=== PATIENT | female | born 1975 | race Caucasian/White ===

== ENCOUNTER 2021-07-13 10:46 | Emergency (ER) | payer BC ==
[~2021-07-13] VITALS: Ht 177.8 cm; Wt 86.5 kg
[~2021-07-13 10:46] MED LIST: FLUO20CA22 PO; GLYB5TAB3 PO; METF850T8 PO; PNV1TABL25 PO
[2021-07-13] MEDS ORDERED: FAMOTIDINE 20 MG/2 ML VIAL IVP ONE (11:15)
[2021-07-13] MEDS ORDERED: fentaNYL PF VIAL 100 MCG/2 ML VIAL IVP ONE (11:15)
[2021-07-13] MEDS ORDERED: ONDANSETRON PF 4 MG/2 ML VIAL. IVP ONE (11:15)
[2021-07-13] MEDS ORDERED: IV NORMAL SALINE 1000ML BAG 1,000 ML IV ONE (11:15)
[2021-07-13 11:35] LABS: BILIRUBIN,URINE NEGATIVE (NEG); CLARITY,URINE CLOUDY; COLOR,URINE YELLOW; NITRITE,URINE NEGATIVE (NEG); PROTEIN,URINE NEGATIVE (NEG-TRACE); UROBILINOGEN,URINE 0.2 mg/dL (0.2 mg/dL)
[2021-07-13 11:36] LABS: BASO % 0 % (0-3); EOS % 0 % (0-3); HEMATOCRIT 36.4 % (36.0-47.0); HEMOGLOBIN 12.3 g/dL (12.0-15.5); LYMPH # 1.1 x10^3/uL (1.0-4.8); LYMPH % 9 % (24-48); MEAN CORPUSCULAR HEMOGLOBIN 31 pg (25-35); MEAN CORPUSCULAR HGB CONC 34 g/dL (31-37); MEAN CORPUSCULAR VOLUME 91 fL (79-100); MONO # 0.4 x10^3/uL (0.0-1.1); MONO % 3 % (0-9); NEUT % 88 % (31-73); PLATELET COUNT 210 x10^3/uL (140-400); RED BLOOD COUNT 3.99 x10^6/uL (3.50-5.40); WHITE BLOOD COUNT 12.6 x10^3/uL (4.0-11.0)
[2021-07-13 11:43] LABS: AMORPHOUS SEDIMENT,UR PRESENT /HPF; BACTERIA,URINE 0 /HPF (0-FEW); RBC,URINE 0 /HPF (0-2); WBC,URINE 0 /HPF (0-4)
[2021-07-13 11:46] LABS: BARBITURATES NEG (NEG); BENZODIAZEPINES NEG (NEG); CANNABINOIDS NEG (NEG); COCAINE NEG (NEG); METHADONE NEG (NEG); OPIATES NEG (NEG); PHENCYCLIDINE NEG (NEG)
[2021-07-13 11:47] LABS: CALCIUM 8.6 mg/dL (8.5-10.1); CREATININE 0.8 mg/dL (0.6-1.0); GFR 78.3; POTASSIUM 4.4 mmol/L (3.5-5.1)
[2021-07-13 11:50] LABS: AMPHETAMINE/METHAMPHETAMINE NEG (NEG)
[2021-07-13 11:52] LABS: ALBUMIN 3.6 g/dL (3.4-5.0); TOTAL BILIRUBIN 0.2 mg/dL (0.2-1.0); TOTAL PROTEIN 7.1 g/dL (6.4-8.2)
[2021-07-13] MEDS ORDERED: METOCLOPRAMIDE HCL 10 MG/2 ML VIAL. IVP ONE (12:00)
[2021-07-13] MEDS ORDERED: IOHEXOL 300 MG/ML 100ML VIAL. IV ONE (12:45)
--- NOTE | 2021-07-13 13:32 | RAD ---
INDICATION: Reason: n/v/ / Spl. Instructions: omni 300 75ml / History: COMPARISON: None. TECHNIQUE: Axial CT images were obtained through the abdomen and pelvis with intravenous contrast. One or more of the following individualized dose reduction techniques were utilized for this examinat ion: 1. Automated exposure control; 2. Adjustment of the mA and/or kV according to patient size; 3 . Use of iterative reconstruction technique. FINDINGS: Vascular: No abdominal aortic aneurysm. Hepatobiliary: No intrahepatic biliary duct dilation. Pancreas: No peripancreatic edema. Spleen: Spleen unremarkable. Renal/Bladder: Urinary bladder is largely decompressed. Moderate hydronephrosis and hydroureter with perinephric edema and 3 to 4 mm right distal ureter stone. Gastrointestinal: Post appendectomy changes. No dilated loops of bowel to suggest obstruction. Small fat-containing umbilical hernia. There are some degenerative changes the spine with osteophyte formation. IMPRESSION: * Right-sided hydronephrosis and hydroureter with perinephric edema and right distal ureter stone. Electronically signed by: Jared Serrato MD (07/13/2021 1:29 PM) [id number]
[2021-07-13] MEDS ORDERED: MORPHINE SULFATE 4 MG/ML INJ. IVP ONE (13:45)
[2021-07-13] MEDS ORDERED: TAMSULOSIN 0.4 MG CAP.ER.24H. PO ONE (14:00)
[2021-07-13] MEDS ORDERED: NAPR500T8 PO (15:33)
[2021-07-13] MEDS ORDERED: ONDA4TAB12 PO (15:33)
[2021-07-13] MEDS ORDERED: TAMS0.4C97 PO (15:33)
[2021-07-13] MEDS ORDERED: HYDR-2761 PO (15:33)
--- NOTE | 2021-07-13 15:34 | PHYS DOC ---
Past Medical History Past Medical History: Diabetes-Type II (HILLARY CONTRERAS [address] TESTER) Past Surgical History: Appendectomy, , Tonsillectomy Additional Past Surgical Histo: bilateral inner ear surgery (HILLARY CONTRERAS [address] TESTER) Smoking Status: Never Smoker Alcohol Use: Occasionally Drug Use: None (HILLARY CONTRERAS [address] TESTER) General Adult EDM: Chief Complaint: FLANK PAIN HPI: HPI: Patient is a 45 year old female with a history of diabetes type 2 who presents to the ED today complaining of moderate right low back pain nonradiating in nature with nausea and vomiting that began this morning. Patient denies any fever. Denies any urgency frequency or dysuria, denies any hematuria. Denies anything specifically exacerbating or relieving the pain. Describes the pain as sharp and constant (HILLARY CONTRERAS [address] TESTER) Review of Systems: Review of Systems: Constitutional: Denies fever or chills. [] Eyes: Denies change in visual acuity. [] HENT: Denies nasal congestion or sore throat. [] Respiratory: Denies cough or shortness of breath. [] Cardiovascular: Denies chest pain or edema. [] GI: Reports nausea and vomiting. Denies abdominal pain, bloody stools or diarrhea. [] : Denies dysuria. [] Musculoskeletal: Reports right low back pain Integument: Denies rash. [] Neurologic: Denies headache, focal weakness or sensory changes. [] Psychiatric: Denies depression or anxiety. [] (HILLARY CONTRERAS [address] TESTER) Heart Score: C/O Chest Pain: N/A Risk Factors: Risk Factors: DM, Current or recent (<one month) smoker, HTN, HLP, family history of CAD, obesity. Risk Scores: Score 0 - 3: 2.5% MACE over next 6 weeks - Discharge Home Score 4 - 6: 20.3% MACE over next 6 weeks - Admit for Clinical Observation Score 7 - 10: 72.7% MACE over next 6 weeks - Early Invasive Strategies (ANNETTEHILLARY [address] TESTER) Current Medications: Current Medications Medications (Trade) Dose Ordered Sig/Beatrice Start Time Stop Time Status Last Admin Dose Admin Famotidine (Pepcid Vial) 20 mg 1X ONCE 07/13/21 11:15 07/13/21 11:16 DC 07/13/21 11:30 20 MG Fentanyl Citrate (Fentanyl 2ml Vial) 50 mcg 1X ONCE 07/13/21 11:15 07/13/21 11:16 DC 07/13/21 11:32 50 MCG Iohexol (Omnipaque 300 Mg/ml) 75 ml 1X ONCE 07/13/21 12:45 07/13/21 12:46 DC 07/13/21 13:14 75 ML Metoclopramide HCl (Reglan Vial) 10 mg 1X ONCE 07/13/21 12:00 07/13/21 12:01 DC 07/13/21 12:50 10 MG Morphine Sulfate (Morphine Sulfate) 4 mg 1X ONCE 07/13/21 13:45 07/13/21 13:46 DC 07/13/21 13:20 4 MG Ondansetron HCl (Zofran) 4 mg 1X ONCE 07/13/21 11:15 07/13/21 11:16 DC 07/13/21 11:29 4 MG Sodium Chloride 1,000 ml @ 1,000 mls/hr 1X ONCE 07/13/21 11:15 07/13/21 12:14 DC 07/13/21 11:28 1,000 MLS/HR Tamsulosin HCl (Flomax) 0.4 mg 1X ONCE 07/13/21 14:00 07/13/21 14:05 DC 07/13/21 14:11 0.4 MG (MUTUNGA,HILLARY M RO[address] TESTER) Allergies: Allergies: Allergies Coded Allergies Type Severity Reaction Last Updated Verified gluten Allergy Mild STOMACHE UPSET 07/13/21 Yes (MUTUNGA,HILLARY M [address] TESTER) Physical Exam: PE: Constitutional: Well developed, well nourished, no acute distress, non-toxic appearance. [] HENT: Normocephalic, atraumatic, bilateral external ears normal, oropharynx moist, no oral exudates, nose normal. [] Eyes: PERRLA, EOMI, conjunctiva normal, no discharge. [] Neck: Normal range of motion, no tenderness, supple, no stridor. [] Cardiovascular:Heart rate regular rhythm, no murmur [] Lungs & Thorax: Bilateral breath sounds clear to auscultation [] Abdomen: Bowel sounds normal, soft, no tenderness, no masses, no pulsatile masses. [] Skin: Warm, dry, no erythema, no rash. [] Back: No tenderness, no CVA tenderness. [] Extremities: No tenderness, no cyanosis, no clubbing, ROM intact, no edema. [] Neurologic: Alert and oriented X 3, normal motor function, normal sensory function, no focal deficits noted. [] Psychologic: Affect normal, judgement normal, mood normal. [] (HILLARY CONTRERAS APRN) Current Patient Data: Labs: Laboratory Tests Test 07/13/21 11:05 07/13/21 11:06 07/13/21 11:21 07/13/21 11:25 Urine Collection Type Void Urine Color Yellow Urine Clarity Cloudy Urine pH 8.0 (<5.0-8.0) Urine Specific [place] 1.025 (1.000-1.030) Urine Protein Negative mg/dL (NEG-TRACE) Urine Glucose (UA) Negative mg/dL (NEG) Urine Ketones (Stick) Negative mg/dL (NEG) Urine Blood Negative (NEG) Urine Nitrite Negative (NEG) Urine Bilirubin Negative (NEG) Urine Urobilinogen Dipstick 0.2 mg/dL (0.2 mg/dL) Urine Leukocyte Esterase Negative (NEG) Urine RBC 0 /HPF (0-2) Urine WBC 0 /HPF (0-4) Urine Squamous Epithelial Cells Occ /LPF Urine Amorphous Sediment Present /HPF Urine Bacteria 0 /HPF (0-FEW) Urine Opiates Screen Neg (NEG) Urine Methadone Screen Neg (NEG) Urine Barbiturates Neg (NEG) Urine Phencyclidine Screen Neg (NEG) Urine Amphetamine/Methamphetamine Neg (NEG) Urine Benzodiazepines Screen Neg (NEG) Urine Cocaine Screen Neg (NEG) Urine Cannabinoids Screen Neg (NEG) Urine Ethyl Alcohol Neg (NEG) Glucose (Fingerstick) 183 mg/dL (70-99) H White Blood Count 12.6 x10^3/uL (4.0-11.0) H Red Blood Count 3.99 x10^6/uL (3.50-5.40) Hemoglobin 12.3 g/dL (12.0-15.5) Hematocrit 36.4 % (36.0-47.0) Mean Corpuscular Volume 91 fL (79-100) Mean Corpuscular Hemoglobin 31 pg (25-35) Mean Corpuscular Hemoglobin Concent 34 g/dL (31-37) Red Cell Distribution Width 13.0 % (11.5-14.5) Platelet Count 210 x10^3/uL (140-400) Neutrophils (%) (Auto) 88 % (31-73) H Lymphocytes (%) (Auto) 9 % (24-48) L Monocytes (%) (Auto) 3 % (0-9) Eosinophils (%) (Auto) 0 % (0-3) Basophils (%) (Auto) 0 % (0-3) Neutrophils # (Auto) 11.0 x10^3/uL (1.8-7.7) H Lymphocytes # (Auto) 1.1 x10^3/uL (1.0-4.8) Monocytes # (Auto) 0.4 x10^3/uL (0.0-1.1) Eosinophils # (Auto) 0.0 x10^3/uL (0.0-0.7) Basophils # (Auto) 0.0 x10^3/uL (0.0-0.2) Sodium Level 139 mmol/L (136-145) Potassium Level 4.4 mmol/L (3.5-5.1) Chloride Level 105 mmol/L (98-107) Carbon Dioxide Level 29 mmol/L (21-32) Anion Gap 5 (6-14) L Blood Urea Nitrogen 13 mg/dL (7-20) Creatinine 0.8 mg/dL (0.6-1.0) Estimated GFR (Cockcroft-Gault) 78.3 BUN/Creatinine Ratio 16 (6-20) Glucose Level 198 mg/dL (70-99) H Calcium Level 8.6 mg/dL (8.5-10.1) Total Bilirubin 0.2 mg/dL (0.2-1.0) Aspartate Amino Transferase (AST) 12 U/L (15-37) L Alanine Aminotransferase (ALT) 22 U/L (14-59) Alkaline Phosphatase 82 U/L (46-116) Total Protein 7.1 g/dL (6.4-8.2) Albumin 3.6 g/dL (3.4-5.0) Albumin/Globulin Ratio 1.0 (1.0-1.7) Lipase 96 U/L (73-393) Ethyl Alcohol Level < 10 mg/dL (0-10) POC Urine HCG, Qualitative Hcg negative (Negative) Laboratory Tests 07/13/21 11:21 Laboratory Tests 07/13/21 11:21 Vital Signs: Vital Signs Date Time Temp Pulse Resp B/P (MAP) Pulse Ox O2 Delivery O2 Flow Rate FiO2 07/13/21 14:00 91 18 133/77 (95) 99 Room Air 07/13/21 10:55 98.0 98.0 ([address] TESTER) EKG: EKG: [] (HILLARY CONTRERAS DIAN) Radiology/Procedures: Radiology/Procedures: []PROCEDURE: CT ABD PELV W/ IV CONTRST ONLY INDICATION: Reason: n/v/ / Spl. Instructions: omni 300 75ml / History: COMPARISON: None. TECHNIQUE: Axial CT images were obtained through the abdomen and pelvis with intravenous contrast. One or more of the following individualized dose reduction techniques were utilized for this examination: 1. Automated exposure control; 2. Adjustment of the mA and/or kV according to patient size; 3. Use of iterative reconstruction technique. FINDINGS: Vascular: No abdominal aortic aneurysm. Hepatobiliary: No intrahepatic biliary duct dilation. Pancreas: No peripancreatic edema. Spleen: Spleen unremarkable. Renal/Bladder: Urinary bladder is largely decompressed. Moderate hydronephrosis and hydroureter with perinephric edema and 3 to 4 mm right distal ureter stone. Gastrointestinal: Post appendectomy changes. No dilated loops of bowel to suggest obstruction. Small fat-containing umbilical hernia. There are some degenerative changes the spine with osteophyte formation. IMPRESSION: * Right-sided hydronephrosis and hydroureter with perinephric edema and right distal ureter stone. Electronically signed by: Martina Martines MD (07/13/2021 1:29 PM) [id number] DICTATED and SIGNED BY: MARTINA MARTINES MD DATE: 07/13/21 [id number] ([address] TESTER) Course & Med Decision Making: Course & Med Decision Making Pertinent Labs and Imaging studies reviewed. (See chart for details) This is a 45-year-old female patient presenting to the ED today with severe right low back pain with nausea and vomiting that began this morning. UA negative for infection, negative for blood. CBC with a WBC of 12.6, CMP with no acute findings, glucose is 198, patient has diabetes type 2. CT of the abdomen and pelvis was noted for moderate hydronephrosis and hydroureter with perinephric edema and 3 to 4 mm right distal ureter stone. Patient was given Flomax, IV fluids and pain medicine, her symptoms are well managed. She was discharged with hydrocodone Flomax and naproxen as well as Zofran. Follow-up with the urologist and PCP. She was provided return precautions. (ANNETTEDaneHILLARY D[address] BIGGS) Course & Med Decision Making I was the Attending physician on the above date of service of this patient. This patient was evaluated, examined, treated, and dispositioned from the emergency department by the mid-level practitioner. Although I was working at the time , no assistance was requested. Electronically signed, Manda Oconnell DO (MANDA OCONNELL DO) Jovanny Disclaimer: Jovanny Disclaimer: This electronic medical record was generated, in whole or in part, using a voice recognition dictation system. (ARABELLAJILLDaneHILLARY Domenic BIGGS) Departure Departure Impression: Primary Impression: Right kidney stone Additional Impression: Nausea & vomiting Qualified Codes: R11.2 - Nausea with vomiting, unspecified Disposition: HOME / SELF CARE / HOMELESS Condition: STABLE Referrals: CHINYERE RUTHERFORD MD (PCP) Please follow-up with your primary care doctor and a urologist of your choice Patient Instructions: Kidney Stones, [id number] Additional Instructions: You were evaluated in the emergency room and noted to have a kidney stone. Please take the prescribed medications as ordered. Please follow-up with your primary care doctor and a urologist of your choice, come back to the Ed if symptoms worsen Scripts Naproxen (NAPROXEN) 500 Mg Tablet.dr 1 TAB PO BID, #20 TAB 0 Refills Prov: ARABELLAHILLARY MCADAMS DIAN 07/13/21 Ondansetron (ONDANSETRON ODT) 4 Mg Tab.rapdis 1 TAB PO PRN Q6-8HRS, #16 TAB Prov: BENHILLARY Domenic BIGGS 07/13/21 Tamsulosin Hcl (FLOMAX) 0.4 Mg Cap.er.24h 1 CAP PO DAILY, #7 CAP Prov: ARABELLAHILLARY MCAD[address] TESTER 07/13/21 Hydrocodone Bit/Acetaminophen (HYDROCODONE-APAP 5-325 ) 1 Tab Tablet 1 TAB PO PRN Q6HRS PRN for PAIN, #14 TAB 0 Refills Prov: ARABELLAPEMA,HILLARY Sheth APRN 07/13/21 HILLARY CONTRERAS APRN Jul 13, 2021 15:34 MANDA OCONNELL DO Jul 14, 2021 16:15
[2021-07-13 15:41] VITALS: BP 114/69
== END 2021-07-13 15:44 | disposition home or self-care (01) ==
LOC: ER 10:46
DX: N13.2 Hydronephrosis with renal and ureteral calculous obstruction (principal); R11.2 Nausea with vomiting, unspecified; E11.9 Type 2 diabetes mellitus without complications; Z90.89 Acquired absence of other organs; Z98.890 Other specified postprocedural states; Z88.8 Allergy status to other drugs, medicaments and biological substances
CPT/HCPCS: 36415; 74177; 80053; 80307; 81001; 81025; 82962; 83690; 85025; 96361; 96374; 96375; 99285; G0480; J2270; J2405; J2765; J3010; J3490; J7030; Q9967